=== PATIENT | male | born 1970 | race Caucasian/White ===

== ENCOUNTER 2016-11-10 20:33 | Emergency (ER) | payer OTHER ==
[~2016-11-10] VITALS: Ht 172.7 cm; Wt 118.4 kg
[2016-11-10 20:35] VITALS: TEMP 36.8; Ht 172.7 cm; Wt 118.4 kg
[2016-11-10] MEDS ORDERED: CEFTRIAXONE SOD INJ 1 GM ADDVIAL IV STA (21:00)
[2016-11-10 21:18] LABS: BASO % 0.3 %; BASO ABS # 0.02 K/uL (0-0.2); COMPLETE YES; EOS % 0.7 %; HEMATOCRIT 45.7 % (42-52); IG% 0.3 %; LYMPH % 15.4 %; LYMPH ABS # 1.11 K/uL (1.2-3.4); MEAN CELL VOLUME 90.7 fL (80-100); MEAN CORPUSCULAR HEMOGLOBIN 32.3 pg (25-34); MEAN CORPUSCULAR HGB CONC 35.7 g/dl (32-36); MEAN PLATELET VOLUME 9.8 fL (7.4-10.4); MONO % 12.9 %; NEUT % 70.4 %; PLATELET COUNT 164 K/uL (130-400); RED BLOOD COUNT 5.04 M/uL (4.7-6.1); WHITE BLOOD COUNT 7.19 K/uL (4.8-10.8)
[2016-11-10 21:49] LABS: BUN/CREATININE RATIO 11.3 (10-20); CALCIUM 9.1 mg/dl (8.5-10.1); CREATININE 1.3 mg/dl (0.60-1.40); POTASSIUM 3.5 mmol/L (3.5-5.1)
[2016-11-10] MEDS ORDERED: CEPH500C2 PO (21:56)
--- NOTE | 2016-11-10 21:59 | EMERGENCY ROOM VISIT NOTE ---
History First contact with patient: 20:46 Chief Complaint: INFECTION Stated Complaint: SORE INFECTION, GROIN Nursing Triage Summary: Pt reports reddened groin area, started yesterday. Concerned about possible infection. L groin area appears red, swollen, and irritated. Pt reports previous dry skin in that area. History of Present Illness The patient is a 45 year old male who presents to the Emergency Room with complaints of redness area in the left groin region. The patient states that he has dry skin and was scratching the area prior to the onset of the symptoms 2 days ago. The patient denies any fever, recent URI symptoms. The patient states that the area was achieved prior to the onset of the rash. The patient denies any chest pain or shortness of breath. Review of Systems 10 system review was performed and was negative unless stated otherwise history of present illness. Past Medical/Surgical History Medical Problems: (1) Anxiety (2) GERD (gastroesophageal reflux disease) (3) Sleep apnea Family History Diabetes mellitus Social History Smoking Status: Never Smoker Alcohol Use: none Marital Status: single Housing Status: lives with family Occupation Status: employed Current/Historical Medications No Active Prescriptions or Reported Meds Allergies Coded Allergies: Amoxicillin (Unverified Allergy, Unknown, HIVES, 11/10/16) Penicillins (Unverified Allergy, Unknown, HIVES, 11/10/16) Physical Exam Vital Signs Date Time Temp Pulse Resp B/P Pulse Ox O2 Delivery O2 Flow Rate FiO2 11/10/16 20:35 36.8 118 16 135/88 92 Room Air Physical Exam GENERAL: 45-year-old obese white male appears in no acute distress MENTAL Status: Alert and oriented 3 NECK: Supple, no lymphadenopathy noted. No carotid bruits noted. LUNGS: Clear auscultation without wheezes rales or rhonchi. CARDIAC: Regular rate and rhythm without murmur. Pulses is full and equal throughout. SKIN: On the left upper thigh there is an area of erythema with central excoriation noted. The areas increased temperature to touch. Remainder skin is unremarkable. Medical Decision & Procedures Laboratory Results 11/10/16 21:12 Red Blood Count 5.04, Mean Corpuscular Volume 90.7, Mean Corpuscular Hemoglobin 32.3, Mean Corpuscular Hemoglobin Concent 35.7, Mean Platelet Volume 9.8, Neutrophils (%) (Auto) 70.4, Lymphocytes (%) (Auto) 15.4, Monocytes (%) (Auto) 12.9, Eosinophils (%) (Auto) 0.7, Basophils (%) (Auto) 0.3, Neutrophils # (Auto ) 5.06, Lymphocytes # (Auto) 1.11, Monocytes # (Auto) 0.93, Eosinophils # (Auto ) 0.05, Basophils # (Auto) 0.02 11/10/16 21:12 Test 11/10/16 21:12 White Blood Count 7.19 K/uL (4.8-10.8) Red Blood Count 5.04 M/uL (4.7-6.1) Hemoglobin 16.3 g/dL (14.0-18.0) Hematocrit 45.7 % (42-52) Mean Corpuscular Volume 90.7 fL (80-100) Mean Corpuscular Hemoglobin 32.3 pg (25-34) Mean Corpuscular Hemoglobin Concent 35.7 g/dl (32-36) Platelet Count 164 K/uL (130-400) Mean Platelet Volume 9.8 fL (7.4-10.4) Neutrophils (%) (Auto) 70.4 % Lymphocytes (%) (Auto) 15.4 % Monocytes (%) (Auto) 12.9 % Eosinophils (%) (Auto) 0.7 % Basophils (%) (Auto) 0.3 % Neutrophils # (Auto) 5.06 K/uL (1.4-6.5) Lymphocytes # (Auto) 1.11 K/uL (1.2-3.4) Monocytes # (Auto) 0.93 K/uL (0.11-0.59) Eosinophils # (Auto) 0.05 K/uL (0-0.5) Basophils # (Auto) 0.02 K/uL (0-0.2) RDW Standard Deviation 42.2 fL (36.4-46.3) RDW Coefficient of Variation 12.7 % (11.5-14.5) Immature Granulocyte % (Auto) 0.3 % Immature Granulocyte # (Auto) 0.02 K/uL (0.00-0.02) Anion Gap 10.0 mmol/L (3-11) Est Creatinine Clear Calc Drug Dose 87.8 ml/min Estimated GFR () 75.3 Estimated GFR (Non- 65.0 BUN/Creatinine Ratio 11.3 (10-20) Calcium Level 9.1 mg/dl (8.5-10.1) Medications Administered Medications (Trade) Dose Ordered Sig/Jean Claude Route Start Time Stop Time Status Last Admin Dose Admin Ceftriaxone Sodium (Rocephin Inj) 1 gm NOW STAT IV 11/10/16 21:00 11/10/16 21:01 DC 11/10/16 21:14 1 GM ED Course The patient was evaluated. IV access was obtained. CBC and differential, renal profile was ordered. The patient was given Rocephin 1 g IV. Labs are reviewed and were unremarkable. White count was normal. The patient was discharged home in stable condition. Medical Decision Differential diagnosis include candidiasis, tinea, cellulitis, eczema Impression Primary Impression: Cellulitis Departure Information Dispostion Home / Self-Care Condition GOOD Prescriptions Cephalexin Monohydrate (KEFLEX) 500 Mg Cap 500 MG PO QID for 10 Days, #40 CAP Prov: Lalitha Fish, PAJosephC 11/10/16 Referrals Uche Rosa M.D. (PCP) Forms HOME CARE DOCUMENTATION FORM, IMPORTANT VISIT INFORMATION, WORK / SCHOOL INSTRUCTIONS Patient Instructions Cellulitis - [facility] Additional Instructions Take Keflex as prescribed. Return to ER in 48 hours for recheck. If the redness spreads more than half an inch past the marked margins return the ER sooner. Tylenol and/or ibuprofen as needed for pain. Problem Qualifiers Primary Impression: Cellulitis Site of cellulitis: extremity Site of cellulitis of extremity: lower extremity Laterality: left Qualified Codes: L03.116 - Cellulitis of left lower limb
[2016-11-10 22:11] VITALS: BP 139/90; PULSE 98; O2SAT 95
== END 2016-11-10 22:12 | disposition home or self-care (01) ==
LOC: C.EDB 20:34 → C.EDD 22:12
DX: L03.314 Cellulitis of groin (principal); F41.9 Anxiety disorder, unspecified; K21.9 Gastro-esophageal reflux disease without esophagitis; G47.30 Sleep apnea, unspecified; E66.9 Obesity, unspecified; Z68.39 Body mass index [BMI] 39.0-39.9, adult

== ENCOUNTER 2016-11-12 18:56 | Emergency (ER) | payer OTHER ==
[~2016-11-12] VITALS: Ht 172.7 cm; Wt 133.6 kg
[~2016-11-12 18:56] MED LIST: CEPH500C2 PO
[2016-11-12 18:58] VITALS: BP 138/85; PULSE 87; TEMP 36.8; O2SAT 95; Ht 172.7 cm; Wt 133.6 kg
[2016-11-12] MEDS ORDERED: SEPTRA DS HOME PACK 1 EA VIAL PO ONE (19:15)
[2016-11-12] MEDS ORDERED: CEFTRIAXONE SOD 350MG/ML 1 GM VIAL IM ONE (19:15)
[2016-11-12] MEDS ORDERED: SULF800T23 PO (19:17)
--- NOTE | 2016-11-12 19:19 | EMERGENCY ROOM VISIT NOTE ---
ED Visit Note First contact with patient: 19:03 CHIEF COMPLAINT: Recheck of rash HISTORY OF PRESENT ILLNESS: This 45-year-old male patient presents to the emergency department ambulatory for a recheck of a left leg cellulitis. The patient reports he was seen here 2 days ago and placed on antibiotics. He was told to return today for a recheck. He reports that he feels the rash is improving, but the redness has spread slightly outside of the area marked with a skin marker. He has not developed any fevers. There is no drainage from the rash. He denies any streaking up the leg. He denies any pain. REVIEW OF SYSTEMS: A review of systems was performed with positives and pertinent negatives listed in the history of present illness. All other systems were reviewed and are negative. ALLERGIES: Penicillins MEDICATIONS: No chronic medications PMH: GERD SOCIAL HISTORY: The patient lives locally with his mother. PHYSICAL EXAM: VITALS: Vitals are noted on the nurse's note and reviewed by myself. Vital signs stable. GENERAL: This is a 45-year-old male, in no acute distress, nondiaphoretic, well- developed well-nourished. SKIN: There is an area of warmth and erythema with central excoriation and minimal induration of the left medial thigh. The erythema extends slightly past the marked lines. There is no lymphangitic streaking. There is no fluctuance or drainage. EMERGENCY DEPARTMENT COURSE: The patient was evaluated as above. Previous ED records were reviewed. The patient was seen here 2 days ago and diagnosed with cellulitis. He does subjectively reports that his symptoms have improved since being seen here. However, the erythema does extend slightly past the marked lines. The patient is currently taking Keflex and does state that he has been taking as prescribed. At this time, I do not feel that he needs to be admitted to the hospital, but he will need very close follow-up. He was given a dose of IM Rocephin. He was also placed on Bactrim. His wound was outlined with a skin marker. He was instructed to return in 36-48 hours for follow-up. He was also informed that he can have the wound rechecked by his primary care provider if he is able to make an appointment. He verbalized understanding of my assessment and treatment plan and was discharged home in good condition. DIAGNOSIS: Cellulitis left leg Problem List Medical Problems: (1) Anxiety Status: Chronic (2) GERD (gastroesophageal reflux disease) Status: Chronic (3) Sleep apnea Status: Chronic Current/Historical Medications Scheduled Cephalexin Monohydrate (Keflex), 500 MG PO QID Sulfa/Trimethoprim (Bactrim Ds 800MG/160MG), 1 TAB PO BID Allergies Coded Allergies: Amoxicillin (Unverified Allergy, Unknown, HIVES, 11/12/16) Penicillins (Unverified Allergy, Unknown, HIVES, 11/12/16) Vital Signs Date Time Temp Pulse Resp B/P Pulse Ox O2 Delivery O2 Flow Rate FiO2 11/12/16 18:58 36.8 87 22 138/85 95 Room Air Medications Administered Medications (Trade) Dose Ordered Sig/Jean Claude Route Start Time Stop Time Status Last Admin Dose Admin Ceftriaxone Sodium (Rocephin Im) 1,000 mg NOW ONCE IM 11/12/16 19:15 11/12/16 19:16 DC 11/12/16 19:31 1,000 MG Trimethoprim/ Sulfamethoxazole (Sulfameth/ Trimeth Ds 800/ 160MG Home Pack) 1 homepack UD ONCE PO 11/12/16 19:15 11/12/16 19:16 DC 11/12/16 19:31 1 HOMEPACK Departure Information Impression Primary Impression: Cellulitis of left leg Dispostion Home / Self-Care Condition GOOD Prescriptions Sulfa/Trimethoprim (Bactrim Ds 800MG/160MG) Tab 1 TAB PO BID for 8 Days, #16 TAB Prov: Johanne Recio ., LYLE 11/12/16 Referrals Uche Rosa M.D. (PCP) Patient Instructions [facility] Additional Instructions Continue the discharge instructions given to you at your previous visit. Take the Bactrim, twice daily as prescribed. For pain control, you can use the following [id number] medicines (if >12 yo): - Regular strength (325mg/tab) Tylenol (acetaminophen) 2 tabs every 4-6 hours as needed. Do not exceed 12 tablets in a 24 hour period. Avoid taking more than 4 grams (4000 mg) of Tylenol per day. This includes any other sources of acetaminophen you may take on a regular basis. - Regular strength (200 mg/tab) Advil (ibuprofen) 1-2 tabs every 4-6 hours as needed. Do not exceed a dose of 3200 mg per day. Return or go tear primary care provider Monday for a recheck. Return sooner for worsening redness, worsening swelling, fevers or any other new /concerning symptoms.
== END 2016-11-12 19:32 | disposition home or self-care (01) ==
LOC: C.EDB 18:57 → C.EDD 19:32
DX: L03.116 Cellulitis of left lower limb (principal)

== ENCOUNTER → 2017-02-23 | Outpatient (CLI) | payer OTHER | END | disposition home or self-care (01) | LOC: C.PATHSPEC 17:12 | PROVIDERS: ATTEND Nurse Practitioner Adult Health | DX: R31.29 Other microscopic hematuria (principal) ==

== ENCOUNTER → 2017-02-28 | Outpatient (CLI) | payer OTHER ==
[~2017-02-28] VITALS: Ht 175.3 cm; Wt 134.2 kg
[2017-02-28 16:18] VITALS: BP 116/80; PULSE 112; Ht 175.3 cm; Wt 134.2 kg
== END ==
LOC: C.NEUR 15:15
PROVIDERS: ATTEND Internal Medicine Pulmonary Disease
DX: G47.30 Sleep apnea, unspecified (principal); R53.83 Other fatigue; E66.01 Morbid (severe) obesity due to excess calories

== ENCOUNTER → 2017-03-02 | Outpatient (CLI) | payer OTHER ==
[~2017-03-02] MED LIST changes: -CEPH500C2 PO; +OPTIRAY 320 IV PRN
--- NOTE | 2017-03-02 10:34 | DIAGNOSTIC IMAGING REPORT ---
CT UROGRAM CLINICAL HISTORY: Microscopic hematuria. COMPARISON STUDY: CT urogram dated 06/14/2012. TECHNIQUE: Before and following the IV administration of 119 cc of Optiray 320, CT urogram of the abdomen and pelvis is performed from the lung bases to the proximal femora. Images are reviewed in the axial, sagittal, and coronal planes. IV contrast was administered without complication. The examination is degraded by large body habitus, and by streak artifact from the body wall abutting the CT gantry. CT DOSE: 2546.89 mGycm FINDINGS: Lung bases: The heart is normal in size and without pericardial effusion. There is a 1.5 cm left lower lobe pulmonary nodule. This is new from 06/14/2012 and is concerning for neoplasm. No airspace consolidation or pleural effusion is seen. There is a tiny hiatal hernia. Liver: The contrast-enhanced liver is enlarged, measuring 23.5 cm in length. The liver demonstrates diffusely diminished attenuation consistent with hepatic steatosis. Fatty sparing is seen adjacent to the gallbladder fossa. There is no intrahepatic biliary ductal dilatation. The hepatic veins and portal veins are patent. Gallbladder: Unremarkable. Spleen: Normal in size and attenuation. Pancreas: Unremarkable. Adrenal glands: A 1.7 cm myelolipoma is noted in the right adrenal gland. Left adrenal gland is unremarkable. Kidneys and ureters: The contrast enhanced kidneys are normal in size and without hydronephrosis. There is an 8 mm nonobstructing calculus in the lower pole of left kidney. No right renal calculi are seen on the unenhanced images. The kidneys enhance and excrete symmetrically. The subcentimeter cortical hypodensity in the upper pole of the right kidney seen on image #192 is unchanged from 2012. This likely represents a cyst but is too small for definitive characterization. There is no enhancing renal cortical mass lesion identified. There is no evidence of urothelial lesion within the renal pelvis bilaterally or along the course of either ureter. Abdominal vasculature: The abdominal aorta is normal in course and caliber noting scattered foci of atherosclerotic calcification. Bowel: The small bowel and colon are normal in course and caliber. There is mild to moderate colonic diverticulosis without CT evidence of acute diverticulitis. The appendix is well-visualized and normal. Peritoneum: There is no intraperitoneal free air or abdominal ascites. There is a fat-containing umbilical hernia. Lymphadenopathy: None. Pelvic viscera: The bladder, prostate, and seminal vesicles are normal as visualized. There is a fat-containing left inguinal hernia. Skeletal structures: No destructive bony lesions are seen. There is mild to moderate lumbosacral spondylosis. Degenerative change is seen involving the sacroiliac joints. IMPRESSION: 1. There is a 1.5 cm pulmonary nodule at the left lung base. This is new from 2012 and concerning for neoplasm. A dedicated CT scan of the chest is recommended for full assessment of the thorax. 2. There is an 8 mm nonobstructing left renal calculus. No right renal calculi are identified. 3. There is no enhancing renal cortical mass, and no evidence of urothelial lesion within the renal pelvis bilaterally or along the course of the ureters. 4. The bladder is normal as imaged. 5. Hepatomegaly and hepatic steatosis. 6. Mild to moderate colonic diverticulosis without CT evidence of acute diverticulitis. 7. Additional findings as above. Electronically signed by: Aly Bender M.D. 03/02/2017 10:33 AM Dictated Date/Time: 03/02/2017 10:22 AM
== END | disposition home or self-care (01) ==
LOC: C.CTS 09:36
PROVIDERS: ATTEND Nurse Practitioner Adult Health
DX: R31.29 Other microscopic hematuria (principal); R91.1 Solitary pulmonary nodule; N20.0 Calculus of kidney; K76.0 Fatty (change of) liver, not elsewhere classified; K57.30 Diverticulosis of large intestine without perforation or abscess without bleeding

== ENCOUNTER → 2017-04-17 | Outpatient (CLI) | payer OTHER ==
--- NOTE | 2017-04-17 09:55 | DIAGNOSTIC IMAGING REPORT ---
CHEST CT WITHOUT CONTRAST CT DOSE: 745.88 mGycm HISTORY: Pulmonary nodule R91.1 Pulmonary nodule TECHNIQUE: Multiaxial CT images of the chest were performed without contrast. COMPARISON: CT abdomen dated 03/02/2017 FINDINGS: 4 mm nodule superior segment left lower lobe transaxial image 30. Nodular density left base measuring 14 x 11 mm. This is unchanged in the prior study. Scattered areas of mild 9 appearing pleural thickening. Chronic thickening inferior aspect left major fissure and no significant hilar or mediastinal adenopathy. No significant axillary mediastinal or upper abdominal adenopathy. Mild fatty infiltration of liver. IMPRESSION: 1. 2 left lower lobe nodules. 2. Largest measures 11 x 14 mm and is unchanged from the prior study. 3. A second nodule measuring 4 mm within the superior segment of the left lower lobe. 4. Follow-up per Fleischner criteria. Neoplasm cannot be excluded. Please refer to below summary of Fleischner criteria recommendations for follow-up of incidental CT nodules (Sathya Edwards, Guidelines for management of small pulmonary nodules detected on CT scans: A statement from the Fleischner Society, Radiology 237: [phone].) SOLID NODULES Solitary nodule size: <6 mm * low risk patients: no follow-up needed * high risk patients: optional CT at 12 months Solitary nodule size: 6-8 mm * low risk patients: follow-up at 6-12 months, then consider further follow-up at 18-24 months * high risk patients: initial follow-up CT at 6-12 months and then at 18-24 months if no change Solitary nodule size: >8 mm * either low or high risk patients - consider follow-up CT at 3 months, and/or CT-PET, and/or biopsy Multiple nodules size: <6 mm * low risk patients: no routine follow-up * high risk patients: optional CT at 12 months Multiple nodules size: 6-8 mm * low risk patients: follow-up at 3-6 months, then consider further follow-up at 18-24 months * high risk patients: follow-up at 3-6 months, then at 18-24 months if no change Multiple nodules size: >8 mm * low risk patients: follow-up at 3-6 months, then consider further follow-up at 18-24 months * high risk patients: follow-up at 3-6 months, then at 18-24 months if no change Note: newly detected indeterminate nodule in persons 35 years of age or older. * Low risk patients: minimal or absent history of smoking and/or other known risk factors * high risk patients: history of smoking or of other known risk factors (e.g. first degree relative with lung cancer, or exposure to asbestos, radon, uranium) * if a nodule up to 8 mm is partly solid or is ground glass further follow-up is required after 24 months to exclude possible slow growing adenocarcinoma (EJ) SUBSOIL NODULES Solitary pure ground-glass nodule * nodule size <6 mm - no CT follow-up required * nodule size >=6 mm - follow-up CT at 6-12 months, then every 2 years until 5 years Solitary part-solid nodule * nodule size <6 mm - no CT follow-up required * nodule size >=6 mm - follow-up CT at 3-6 months. If unchanged, and solid component remains <6 mm, then annual follow-up for 5 years Multiple subsolid nodules * nodule size <6 mm - follow-up CT at 3-6 months, consider further follow-up at 2 and 4 years if stable * nodule size >=6 mm - follow-up CT at 3-6 months, subsequent management based on the most suspicious nodule(s) Electronically signed by: Aaron Fish M.D. 04/17/2017 9:54 AM Dictated Date/Time: 04/17/2017 9:48 AM
== END | disposition home or self-care (01) ==
LOC: C.CTS 09:29
PROVIDERS: ATTEND Internal Medicine
DX: R91.1 Solitary pulmonary nodule (principal)

== ENCOUNTER → 2017-05-15 | Outpatient (CLI) | payer OTHER ==
--- NOTE | 2017-05-15 10:52 | DIAGNOSTIC IMAGING REPORT ---
KUB HISTORY: Nephrolithiasis. COMPARISON: KUB 08/04/2010. Abdomen and pelvis CT 03/02/2017. FINDINGS: The bowel gas pattern is unremarkable. There are no dilated loops of small bowel to suggest an obstruction. Stable 5 mm stone within the lower pole of the left kidney. No right renal calculi.. No ureteral calculi. Calcifications in the deep pelvis likely represent phleboliths. No pneumoperitoneum or pneumatosis. IMPRESSION: Stable left-sided nephrolithiasis. Electronically signed by: Sharad Orona M.D. 05/15/2017 10:51 AM Dictated Date/Time: 05/15/2017 10:50 AM
== END | disposition home or self-care (01) ==
LOC: C.RAD 09:55
PROVIDERS: ATTEND Nurse Practitioner Adult Health
DX: N20.0 Calculus of kidney (principal)

== ENCOUNTER → 2017-10-24 | Outpatient (CLI) | payer OTHER ==
--- NOTE | 2017-10-24 12:00 | DIAGNOSTIC IMAGING REPORT ---
(CHEST) THORAX WITHOUT CT DOSE: 1092.84 mGy.cm HISTORY: R91.1 Pulmonary nodule 6 month follow-[id number] TECHNIQUE: Multiaxial CT images of the chest were performed without contrast. A dose lowering technique was utilized adhering to the principles of ALARA. COMPARISON: Chest CT 04/17/2017 and abdomen and pelvis CT 03/02/2017 at 06/14/2012. FINDINGS: There is again noted a 1.5 x 1.1 cm nodule within the base of the left lower lobe. This is unchanged in size compared to the 2016 examinations but is new from the 2011 study. There are multiple additional scattered subcentimeter pulmonary nodules seen throughout the lungs. These range in size from 2 to 5 mm and also remain unchanged. There are likely greater than 30 nodules in total. No definite new pulmonary nodules identified. The central airways are patent. No pneumothorax. No suspicious lytic or blastic osseous lesions. Hepatic steatosis. The unenhanced spleen and left adrenal gland are unremarkable. 1.8 cm fat-containing lesion within the right adrenal gland, unchanged. This favors a myelolipoma. The heart is normal in size. Normal caliber thoracic aorta. IMPRESSION: 1. Stable dominant 1.5 x 1.1 cm nodule within the left lower lobe. 2. There are also greater than 30 subcentimeter nodules seen throughout the lungs measuring between 2 and 5 mm in size. These remain stable. No definite new pulmonary nodules. Given the multiple nodules and stability, this favors a chronic inflammatory/infectious process. However, continued six-month chest CT follow-up is recommended to exclude the less likely possibility of metastatic disease. Electronically signed by: Sharad Orona M.D. 10/24/2017 11:59 AM Dictated Date/Time: 10/24/2017 11:45 AM
== END | disposition home or self-care (01) ==
LOC: C.CTS 11:25
PROVIDERS: ATTEND Internal Medicine
DX: R91.1 Solitary pulmonary nodule (principal)